=== PATIENT | female | born 2000 | race Caucasian/White ===

== ENCOUNTER 2024-04-13 15:22 | Emergency (ER) | payer BC ==
[~2024-04-13] VITALS: Ht 167.6 cm; Wt 80.9 kg
[2024-04-13 15:36] VITALS: TEMP 99
[2024-04-13 16:00] LABS: PH 6.5 (5.0-8.5); URINE APPEARANCE CLEAR (CLEAR/HAZY); URINE BLOOD NEGATIVE (NEGATIVE); URINE COLOR YELLOW (YELLOW); URINE GLUCOSE NEGATIVE (NEGATIVE); URINE KETONE NEGATIVE (NEGATIVE); URINE NITRATE NEGATIVE (NEGATIVE); URINE PROTEIN(semi-quant) NEGATIVE (NEGATIVE); URINE UROBILINOGEN 0.2 E.U/dL (0.2-1.0)
[2024-04-13 16:20] LABS: COLLECTION METHOD CLEAN CATCH
[2024-04-13 18:41] VITALS: BP 124/80; PULSE 78
== END 2024-04-13 18:41 | disposition home or self-care (01) ==
LOC: COL.ER 15:22
PROVIDERS: Nurse Practitioner
DX: O99.891 Other specified diseases and conditions complicating pregnancy (principal); M25.512 Pain in left shoulder; Z3A.01 Less than 8 weeks gestation of pregnancy